=== PATIENT | female | born 1950 | race Caucasian/White ===

== ENCOUNTER 2019-03-29 19:53 | Emergency (ER) | payer OTHER ==
[~2019-03-29] VITALS: Ht 160 cm; Wt 69.0 kg
[~2019-03-29 19:53] MED LIST: CLARITIN10 MG PO; DOCUSATE SODIU100 MG PO; LISINOPRIL10 MG PO; VIVELLE-DOT1 PATC1 TD
[2019-03-29] MEDS ORDERED: ZOMIG2.5 M1 NAS (20:47)
[2019-03-29] MEDS ORDERED: PANTOPRAZOLE SO40 MG PO (20:47)
[2019-03-29] MEDS ORDERED: CYCLOBENZAPRINE10 MG PO (20:48)
[2019-03-29] MEDS ORDERED: ESTRACE42.5 GM VAGINAL (20:49)
[2019-03-30] MEDS ORDERED: DOTTI1 EAC4 TD (13:21)
== END 2019-03-29 22:55 | disposition home or self-care (01) ==
LOC: ED 19:53
DX: R56.9 Unspecified convulsions (principal); R11.10 Vomiting, unspecified; I10 Essential (primary) hypertension; Z85.038 Personal history of other malignant neoplasm of large intestine; Z88.1 Allergy status to other antibiotic agents; Z88.5 Allergy status to narcotic agent; Z91.048 Other nonmedicinal substance allergy status; Z79.899 Other long term (current) drug therapy
CPT/HCPCS: 70450; 80053; 81001; 83735; 85025; 96361; 96374; 96375; 99285-25; G0480; J2405; J2765; J7030

== ENCOUNTER 2019-03-30 13:03 | Day surgery (SDC) | payer OTHER ==
[~2019-03-30] VITALS: Ht 160 cm; Wt 70.8 kg
--- NOTE | ~2019-03-30 | OR ---
[facility] [address] [place], [place] [address] Draft DATE OF OPERATION: 03/30/2019 SURGEON: Jose Oconnor MD PREOPERATIVE DIAGNOSIS: History of right colectomy for stage III colon carcinoma, 2016 (Dr. Kyler Vasquez, [place], [place]). POSTOPERATIVE DIAGNOSIS: Normal colon to ileocolonic anastomosis. PROCEDURE: Total colonoscopy. ANESTHESIA: Intravenous sedation, fentanyl 100 mcg, Versed 6 mg. INDICATION: This 69-year-old white woman is a patient of Dr. Jimenez and underwent right colectomy by laparoscopic approach in 2015 for stage III right colon cancer by Dr. Kyler Vasquez of [place], [place]. She has undergone colonoscopy about a wxtt-irr-c-half ago, which was normal. She is symptom free currently and is here for surveillance colonoscopy. She understands risks of bleeding, infection, and perforation related to colonoscopy and wishes to proceed. Of note, her bowel prep yesterday (MiraLAX type prep) was accompanied by some amount of dehydration, which prompted an emergency room visit, for which, IV fluids were given and she feels well today and certainly able to proceed with colonoscopy. FINDINGS: The prep was good. Complete colonoscopy was undertaken to the ileotransverse colonic anastomosis. There was no sign of polyps, diverticular formation, colitis, or cancer. She had deep sulci of the sigmoid area suggestive of a diverticular issue, however. DESCRIPTION OF PROCEDURE: The patient was brought to the endoscopy suite and placed in lateral decubitus position, given intravenous sedation to the point of slurred speech and nystagmus with full cardiopulmonary monitoring. Digital rectal examination showed extensive external hemorrhoidal changes. Sphincter tone was normal for age. An Olympus video colonoscope was passed in the rectum and manipulated throughout the colon, ultimately intubating the PATIENT NAME: LESLY CEDENO OPERATIVE REPORT DATE OF : 54 REPORT #: [id number] PHYSICIAN: JOSE OCONNOR MD PCP: JIMBO THOMPSON MD REPORT IS CONFIDENTIAL AND NOT TO BE RELEASED WITHOUT AUTHORIZATION [facility] [address] [place], [place] [address] Draft ileotransverse colonic anastomosis. The scope was carefully withdrawn from that point and examination throughout showed no sign of polyps, diverticular formation, colitis, or cancer. There were deep sulci of the mucosal folds of the sigmoid, suggestive of a diverticular issue, however. Retroflexed view was normal as well. The scope was removed. The patient was taken to recovery room in good condition. CONCLUDING DIAGNOSIS: No evidence of polyps, recurrent cancer, or anastomotic stricture. PLAN: Recommend repeat colonoscopy in 1-2 years per patient preference, sooner if symptoms should develop of course. She will return to the ongoing care of Dr. Jimenez. MD BRUNA Bradley/PEDRO /[id number] cc: Dr. Tony Chávez [facility] Copies: ~ PATIENT NAME: LESLY CEDENO OPERATIVE REPORT DATE OF : 54 REPORT #: [id number] PHYSICIAN: JOSE OCONNOR MD PCP: JIMBO THOMPSON MD REPORT IS CONFIDENTIAL AND NOT TO BE RELEASED WITHOUT AUTHORIZATION
[~2019-03-30 13:03] MED LIST changes: +CYCLOBENZAPRINE10 MG PO; +ESTRACE42.5 GM VAGINAL; +PANTOPRAZOLE SO40 MG PO; +ZOMIG2.5 M1 NAS
[2019-03-30] MEDS ORDERED: DOTTI1 EAC4 TD (13:21)
--- NOTE | 2019-03-30 14:16 | NUR ---
03/30/19 1416 Stacia Bennett 1413 PATIENT ARRIVES TO PACU AWAKE BUT DROWSY. DENIES PAIN OR NAUSEA. RESP EVEN AND UNLABORED, ROOM AIR SATS >94%.
== END 2019-03-30 14:40 | disposition home or self-care (01) ==
LOC: OPS 13:03 → DS 14:00 → OPS 14:00
PROVIDERS: Surgery
PROC: 0DJD8ZZ Inspection of Lower Intestinal Tract, Via Natural or Artificial Opening Endoscopic (ICD-10-PCS; principal; 2019-03-30 14:00)
DX: Z12.11 Encounter for screening for malignant neoplasm of colon (principal); K21.9 Gastro-esophageal reflux disease without esophagitis; I10 Essential (primary) hypertension; G60.9 Hereditary and idiopathic neuropathy, unspecified; Z85.038 Personal history of other malignant neoplasm of large intestine
CPT/HCPCS: 99153; G0500; J2250; J3010; J7121

== ENCOUNTER 2019-06-28 14:32 | Emergency (ER) | payer OTHER ==
[~2019-06-28] VITALS: Ht 160 cm; Wt 69.8 kg
[~2019-06-28 14:32] MED LIST changes: +DOTTI1 EAC4 TD
[2019-06-28] MEDS ORDERED: LISINOPRIL40 MG PO (15:09)
== END 2019-06-28 17:55 | disposition home or self-care (01) ==
LOC: ED 14:32
DX: S70.01XA Contusion of right hip, initial encounter (principal); W01.198A Fall on same level from slipping, tripping and stumbling with subsequent striking against other object, initial encounter; I10 Essential (primary) hypertension; Z88.1 Allergy status to other antibiotic agents; Z88.8 Allergy status to other drugs, medicaments and biological substances; Z88.5 Allergy status to narcotic agent; Z79.899 Other long term (current) drug therapy; Z85.038 Personal history of other malignant neoplasm of large intestine
CPT/HCPCS: 73502; 73552; 80053; 85025; 96374; 96375; 99283-25; J1170; J2405

== ENCOUNTER 2020-01-10 07:33 | Day surgery (SDC) | payer MEDICARE ==
[~2020-01-10] VITALS: Ht 160 cm; Wt 65.8 kg
[~2020-01-10 07:33] MED LIST changes: +LISINOPRIL40 MG PO
--- NOTE | 2020-01-10 09:20 | NUR ---
01/10/20 0920 Deborah Viramontes 0910- PT TO PACU IN SF POSITION. AWAKENS EASILY TO VOICE. DENIES PAIN NAUSEA OR DIZZINESS. BREATHING EASY AND UNLABORED. SPO2 >95% ON 3 L O2 VIA NC. POC DISCUSSED WITH PATIENT. PT ANSWERING QUESTIONS APPROPRIATELY. 0918- PT REQUESTING WATER BUT FALLS BACK TO SLEEP. BREATHING EASY AND UNLABORED. SPO2 95% ON 3 L O2 VIA NC. BREATHING EASY AND UNLABORED.
--- NOTE | 2020-01-10 10:30 | NUR ---
PT IS ALERT, ORIENTED AND SEEMS TO BE AT EASE. ALL QUESTIONS ASKED BY PT WERE ANSWERED. PT REQUESTED PRAYER, WILL FOLLOW
--- NOTE | 2020-01-11 07:48 | OR ---
[facility] [address] [place], [place] [address] Signed DATE OF OPERATION: 01/10/2020 SURGEON: Jose Ocnonor MD PREOPERATIVE DIAGNOSES: 1. Progressive dysphagia. 2. History of celiac disease. POSTOPERATIVE DIAGNOSES: 1. No evidence of esophageal stricture; biopsies pending for eosinophilic esophagitis. 2. Small gastric polyps, mild antral gastritis. PROCEDURES: 1. Esophagogastroduodenoscopy with biopsy. 2. Excision of sales representative facility services gastric polyp. ANESTHESIA: Intravenous sedation, fentanyl 100 mcg, and Versed 3 mg. INDICATION: A 69-year-old white woman is a patient of Dr. Angela Julian, and complaints of dysphagia. This has been progressive lately and includes liquid sometimes. The patient is said to have underlying disorder of celiac disease. The association between celiac disease and eosinophilic esophagitis is well known (10 times incidence compared to normal), and upper endoscopy has been recommended by me to assess for cause of her dysphagia including that of stricture, neoplasm, or of course the eosinophilic esophagitis. She understands risks of bleeding, infection, and perforation related to upper endoscopy and wished to proceed. FINDINGS: There was no sign of stricture. There was no Quiñonez's epithelium. She did not have a felinized esophagus, though biopsies are pending as regard to the eosinophilic esophagitis. She had several gastric polyps, one of which was excised. Biopsies were taken of the duodenum, which incidentally did have a normal appearance despite prior diagnosis of celiac disease. A CLOtest was negative at 15 minutes postprocedure. DESCRIPTION OF PROCEDURE: The patient was brought to the endoscopy suite, given topical Hurricaine spray hypopharyngeal anesthesia and placed in lateral decubitus position. She was given Electronically Signed By: JOSE OCONNOR MD 01/11/20 0748 PATIENT NAME: LESLY CEDENO OPERATIVE REPORT DATE OF : 54 REPORT #: [id number] PHYSICIAN: JOSE OCONNOR MD PCP: ANGELA JULIAN MD REPORT IS CONFIDENTIAL AND NOT TO BE RELEASED WITHOUT AUTHORIZATION [facility] [address] [place], [place] [address] Signed intravenous sedation to the point of slurred speech and nystagmus. A bite block was placed. An Olympus video upper endoscope was passed in the hypopharynx. The vocal cords appeared normal. Scope was advanced to the esophagus without problem; throughout its length it looked essentially normal, there is certainly no sign of stricture. There was no Quiñonez's epithelium. Scope was passed to the stomach, which was insufflated with air, there were few scattered gastric polyps and mild antral gastritis. The pylorus was normal. Scope was passed through into the duodenum. Duodenal mucosa appeared normal. Biopsies were taken on the basis of her prior diagnosis of celiac disease. The scope was withdrawn and biopsies then taken of the antrum for both MARTY and pathologic testing. Retroflexed view showed a normal flap valve. A few small gastric polyps were noted. A sales representative facility services one was excised. CLOtest biopsies were obtained as well. The scope was straightened and withdrawn to the distal esophagus, where biopsies were obtained. There was no evidence of Quiñonez's epithelium or stricture. There were no varices. The scope was withdrawn and midesophagus were multiple biopsied, also taken to assess for the eosinophilic esophagitis. Careful withdrawal of scope showed no other findings of concern. The patient was taken to the recovery room in good condition. CONCLUSION DIAGNOSIS: No evidence of stricture to account for dysphagia. Biopsies are pending as regard to the eosinophilic esophagitis. The association between celiac disease and eosinophilic esophagitis is quite strong. We will await those repeat results. If that proves to be negative as to an etiology for her dysphagia, consideration will be made for video esophagram or formal motility testing for a functional disorder of the esophagus. MD BRUNA Bradley/MODL /[id number] cc: Angela Julian MD Copies: ANGELA JULIAN MD ~ Electronically Signed By: JOSE OCONNOR MD 01/11/20 0748 PATIENT NAME: LESLY CEDENO OPERATIVE REPORT DATE OF : 54 REPORT #: [id number] PHYSICIAN: JOSE OCONNOR MD PCP: ANGELA JULIAN MD REPORT IS CONFIDENTIAL AND NOT TO BE RELEASED WITHOUT AUTHORIZATION
--- NOTE | 2020-01-11 10:43 | PATH ---
[facility] [address] [place], [place] [address] Signed SPECIMEN(S): E MIDDLE ESOPHAGUS SPECIMEN(S): A DUODENUM SPECIMEN(S): B ANTRUM/PYLORUS SPECIMEN(S): C STOMACH POLYP SPECIMEN(S): D LOWER ESOPHAGUS SPECIMEN SOURCE: A. DUODENUM B. ANTRUM/PYLORUS C. STOMACH POLYP D. LOWER ESOPHAGUS E. MIDDLE ESOPHAGUS CLINICAL HISTORY: Dysphagia; GERD; celiac disease; history of colon CA. Rule out eosinophilic esophagitis. MICROSCOPIC DESCRIPTION: Histologic sections of all submitted blocks are examined by light microscopy. These findings, together with the gross examination, support the pathologic diagnosis. FINAL PATHOLOGIC DIAGNOSIS: A. Duodenum, biopsy: - Duodenal mucosa with no histopathologic abnormality. - Negative for increased intraepithelial lymphocytes. - Negative for dysplasia or malignancy. B. Stomach, antrum/pylorus, biopsy: - Oxyntic mucosa with mild chronic, inactive gastritis. - Negative for Helicobacter organisms on HE stain. - Negative for dysplasia or malignancy. C. Stomach, polyp, polypectomy: - Fundic gland polyp. - Negative for dysplasia or malignancy. D. Esophagus, lower, biopsy: - Squamous and squamocolumnar junctional mucosa with mild chronic inflammation and reactive changes, suggestive of reflux esophagitis. - Negative for intestinal metaplasia, dysplasia, or malignancy. E. Esophagus, middle, biopsy: - Squamous mucosa with no histopathologic abnormality. - Negative for intestinal metaplasia, dysplasia, or malignancy. NAL:cml:[id number] PATIENT NAME: LESLY CEDENO PATHOLOGY DATE OF : 54 REPORT #: [id number] PHYSICIAN: VIOLA BOLDEN PCP: ANGELA JULIAN MD REPORT IS CONFIDENTIAL AND NOT TO BE RELEASED WITHOUT AUTHORIZATION [facility] [address] [place], [place] [address] Signed GROSS DESCRIPTION: Five specimens are received in five containers, labeled "SR." A. The specimen, labeled "SR, 1," and designated on the requisition "duodenum," is received in formalin and consists of two jose soft tissue fragments that measure 0.3 cm in greatest dimension. The specimen is entirely submitted in cassette (A1). B. The specimen, labeled "SR, 2," and designated on the requisition "antrum/pylorus," is received in formalin and consists of two jose soft tissue fragments that measure 0.5 cm in greatest dimension. The specimen is entirely submitted in cassette (B1). C. The specimen, labeled "SR, 3," and designated on the requisition "stomach polyp," is received in formalin and consists of one jose soft tissue polypoid fragment that measures 0.4 cm in greatest dimension. The specimen is entirely submitted in cassette (C1). D. The specimen, labeled "SR, 4," and designated on the requisition "lower esophagus," is received in formalin and consists of three jose soft tissue fragments that measure 0.4 cm in greatest dimension. The specimen is entirely submitted in cassette (D1). E. The specimen, labeled "SR, 5," and designated on the requisition "middle esophagus," is received in formalin and consists of four thin, jose soft tissue fragments that measure 0.4 cm in greatest dimension. The specimen is entirely submitted in cassette (E1). AT (under the direct supervision of a pathologist) The Gross Description was prepared using a voice recognition system. The report was reviewed for accuracy; however, sound-alike word errors, addition and/or deletions may occur. If there is any question about this report, please contact Client Services. PERFORMING LABORATORY: The technical component was performed by [employer] [address] (Handstitching Machine Collar Feller: Carrie Staley MD; CLIA# [id number]). Professional interpretation was performed by [facility], [address] [place], [place] [address] (CLIA# [id number]). Diagnostician: Lakeshia Hightower MD Pathologist Electronically Signed 01/11/2020 PATIENT NAME: LESLY CEDENO PATHOLOGY DATE OF : 54 REPORT #: [id number] PHYSICIAN: VIOLA BOLDEN PCP: ANGELA JULIAN MD REPORT IS CONFIDENTIAL AND NOT TO BE RELEASED WITHOUT AUTHORIZATION [facility] [address] [facility] [place], [place] [address] Signed Copies: ~ PATIENT NAME: LESLY CEDENO PATHOLOGY DATE OF : 54 REPORT #: [id number] PHYSICIAN: VIOLA BOLDEN PCP: ANGELA JULIAN MD REPORT IS CONFIDENTIAL AND NOT TO BE RELEASED WITHOUT AUTHORIZATION
== END 2020-01-10 09:45 | disposition home or self-care (01) ==
LOC: OPS 07:33 → DS 07:33 → OPS 08:30
PROVIDERS: Surgery
PROC: 0DB78ZX Excision of Stomach, Pylorus, Via Natural or Artificial Opening Endoscopic, Diagnostic (ICD-10-PCS; 2020-01-10)
PROC: 0DB28ZX Excision of Middle Esophagus, Via Natural or Artificial Opening Endoscopic, Diagnostic (ICD-10-PCS; 2020-01-10)
PROC: 0DB38ZX Excision of Lower Esophagus, Via Natural or Artificial Opening Endoscopic, Diagnostic (ICD-10-PCS; 2020-01-10)
PROC: 0DB68ZZ Excision of Stomach, Via Natural or Artificial Opening Endoscopic (ICD-10-PCS; 2020-01-10)
PROC: 0DB98ZX Excision of Duodenum, Via Natural or Artificial Opening Endoscopic, Diagnostic (ICD-10-PCS; principal; 2020-01-10 08:30)
DX: K31.7 Polyp of stomach and duodenum (principal); K29.50 Unspecified chronic gastritis without bleeding; K20.9 Esophagitis, unspecified; I10 Essential (primary) hypertension; K21.9 Gastro-esophageal reflux disease without esophagitis; C18.9 Malignant neoplasm of colon, unspecified; G60.9 Hereditary and idiopathic neuropathy, unspecified; Z87.19 Personal history of other diseases of the digestive system; Z91.011 Allergy to milk products; Z88.5 Allergy status to narcotic agent; Z79.899 Other long term (current) drug therapy
CPT/HCPCS: 99153; G0500; J2250; J3010; J7121

== ENCOUNTER 2022-02-08 07:55 | Day surgery (SDC) | payer MEDICAID ==
[~2022-02-08] VITALS: Ht 160 cm; Wt 68.2 kg
[2022-02-08] MEDS ORDERED: COZAAR100 MG PO (08:12)
[2022-02-08] MEDS ORDERED: CELEXA40 MG PO (08:13)
[2022-02-08] MEDS ORDERED: STOOL SOFTENER100 MG PO (08:14)
--- NOTE | 2022-02-08 09:10 | NUR ---
02/08/22 0910 Sheets,Jessica 0904 PT ARRIVED TO PACU ON 2L VIA NC, PT WAKES EASILY AND DENIES PAIN AND NAUSEA. PT ENCOURAGED TO PASS GAS. VSS, PT FALLS BACK TO SLEEP.
--- NOTE | 2022-02-10 15:53 | OR ---
[facility] [address] [place], [place] [address] Signed DATE OF OPERATION: 02/08/2022 SURGEON: Jose Oconnor MD PREOPERATIVE DIAGNOSIS: History of presumed right colon cancer in 2016 with resection, otherwise asymptomatic. POSTOPERATIVE DIAGNOSES: 1. Mucosal nodularity in region of ileocolic anastomosis, presumably right transverse colon. 2. Scattered diverticulitis, sigmoid. PROCEDURE: Total colonoscopy with biopsies. ANESTHESIA: Intravenous sedation, fentanyl 150 mcg and Versed 6 mg. INDICATIONS: This 71-year-old white woman is a patient of Dr. Vimal Rutherford and Dr Jimenez. She recently underwent skin lesion excision by ak (hemangiomas, benign) and is due for followup colonoscopy. She suffered colon cancer in 2016 and has undergone apparent right colectomy for that. She has no symptoms of bleeding, diarrhea, or constipation at this time. She is admitted at this time to undergo colonoscopy. She understands the risks of bleeding, infection, and perforation. FINDINGS: The prep was excellent. Complete colonoscopy was undertaken to the ileocolic anastomosis. There were multiple small mucosal lesions of the colon outside of the area of anastomosis, whether these are adenomatous or hyperplastic is uncertain. Depending on the configuration of the anastomosis, they may represent lymphoid hyperplasia. A small staple from mechanical stapling device was noted as well. Distally, there were few diverticula of the sigmoid. There were no other findings of concern. DESCRIPTION OF PROCEDURE: The patient was brought to the endoscopy suite and placed in lateral decubitus position given intravenous sedation to the point of slurred speech and nystagmus. Full cardiopulmonary monitoring was maintained. Digital rectal examination was undertaken Electronically Signed By: JOSE OCONNOR MD 02/10/22 1553 PATIENT NAME: LESLY CEDENO OPERATIVE REPORT DATE OF : 54 REPORT #: [id number] PHYSICIAN: JOSE OCONNOR MD PCP: ZAIDA STACY MD REPORT IS CONFIDENTIAL AND NOT TO BE RELEASED WITHOUT AUTHORIZATION [facility] [address] [place], [place] [address] Signed showing no sign of abnormality. An Olympus video colonoscope was passed into the rectum and manipulated throughout the colon, ultimately advanced to an area with some nodularity suggestive of the cecum. With further manipulation, it was clear there was an ileocolic anastomosis, which was widely patent. The scope was passed into the ileum and biopsies obtained there. The scope was withdrawn and there were a number of mucosal lesions, not typical of adenomatous and likely relating hyperplasia. Multiple of these lesions were biopsied and passed for pathology. The scope was then withdrawn and examination throughout showed no sign of abnormality other than a few scattered diverticula of the sigmoid. The scope was removed. The patient was taken to the recovery room in good condition. CONCLUDING DIAGNOSES: 1. History of right colectomy for colon cancer in 2016. 2. Mucosal nodularity in region of the ileocolic anastomosis, colonic side. 3. Diverticula. PLAN: If biopsy shows adenomatous tissue, then further intervention will definitely be needed as there remain numerous similar such nodules. If they are hyperplastic, then we would recommend repeat colonoscopy in one to three years. We will await the pathology report before determining the recommendation. Jose Oconnor MD JM/MODL /[id number] cc: Zaida Stacy M.D. Copies: ~ Electronically Signed By: JOSE OCONNOR MD 02/10/22 1553 PATIENT NAME: LESLY CEDENO OPERATIVE REPORT DATE OF : 54 REPORT #: [id number] PHYSICIAN: JOSE OCONNOR MD PCP: ZAIDA STACY MD REPORT IS CONFIDENTIAL AND NOT TO BE RELEASED WITHOUT AUTHORIZATION
== END 2022-02-08 10:15 | disposition home or self-care (01) ==
LOC: OPS 07:55 → DS 07:55 → OPS 09:00 → DS 10:15
PROVIDERS: ATTEND Surgery
PROC: 0DBE8ZX Excision of Large Intestine, Via Natural or Artificial Opening Endoscopic, Diagnostic (ICD-10-PCS; principal; 2022-02-08 09:00)
DX: Z12.11 Encounter for screening for malignant neoplasm of colon (principal); Z85.038 Personal history of other malignant neoplasm of large intestine; I10 Essential (primary) hypertension; K57.32 Diverticulitis of large intestine without perforation or abscess without bleeding; Z90.49 Acquired absence of other specified parts of digestive tract; I78.1 Nevus, non-neoplastic; Z88.5 Allergy status to narcotic agent; Z88.8 Allergy status to other drugs, medicaments and biological substances
CPT/HCPCS: 99153; G0500; J2250; J3010; J7121

== ENCOUNTER 2025-01-17 10:03 | Day surgery (SDC) | payer MEDICARE ==
[~2025-01-17] VITALS: Ht 160 cm; Wt 66.0 kg
[~2025-01-17 10:03] MED LIST changes: +CEFAZOLIN SODIUM 2 GM/20 ML SYR IV SCH; +CELEXA40 MG PO; +COZAAR100 MG PO; +IBLOOD GLUCOSE TEST STRIP 1 EA TEST VI PRN; +LACTATED RINGER'S 1,000 ML IV SCH; +LIDOCAINE HCL 1% 5 ML SDV INJ ONE; +STOOL SOFTENER100 MG PO
[2025-01-17 10:44] VITALS: BP 136/67
[2025-01-17] MEDS ORDERED: TRAMADOL HCL 50 MG TAB PO PRN (12:00)
[2025-01-17] MEDS ORDERED: LIDOCAINE HCL 2% 5 ML SDV ONE (12:10)
[2025-01-17] MEDS ORDERED: HYDROmorphone HCL 1 MG/ML SYR IV PRN (12:15)
[2025-01-17] MEDS ORDERED: METOCLOPRAMIDE HCL 10 MG/2 ML SDV IV PRN (12:15)
[2025-01-17] MEDS ORDERED: fentaNYL citrate 50 MCG/ML SDV IV PRN (12:15)
[2025-01-17] MEDS ORDERED: IBLOOD GLUCOSE TEST STRIP 1 EA TEST VI PRN (12:15)
[2025-01-17] MEDS ORDERED: NALOXONE HCL 0.4 MG SYR IV PRN (12:15)
[2025-01-17] MEDS ORDERED: fentaNYL citrate 100 MCG/2 ML VIAL ONE (12:16)
[2025-01-17] MEDS ORDERED: KETOROLAC TROMETHAMINE 30 MG/ML VIAL ONE (12:55)
[2025-01-17] MEDS ORDERED: TRAMADOL HCL50 MG PO (12:57)
[2025-01-17 13:27] VITALS: BP 140/69
--- NOTE | 2025-01-17 13:53 | NUR ---
01/17/25 Rios3 Martha Durant 1301- PT PRESENTS TO PACU, SEMI FLOYD POSITION, REACTIVE TO STIMULUS BUT STAYS ASLEEP. SLING TO LEFT ARM, ELEVATED ON PILLOW WITH ICE PACK PLACE, DRESSING CDI. LR INFUSING TO RW IV, BREATHING EVEN AND NON LABORED, O2 AT 6L PER MASK. ABD SOFT, NON DISTENDED. ALL MONITORS IN PLACE. 1304- PT WAKES EASILY, REORIENTED TO TIME AND PLACE. DENIES PAIN OR NAUSEA. O2 IN PLACE. 1306- PT ITCHING AT FACE, MOVED TO ROOM AIR AT THIS TIME. 1315- PT ASKING FOR WATER, PROVIDED AND TOLERATING WELL. PT HAS INTERMITTENT COUGH, BUT NO OTHER COMPLAINTS. DENIES PAIN OR NAUSEA. PLAN TO GO BACK TO DAY SURGERY. 1325- PT TAKEN BACK TO DAY SURGERY, AT BEDSIDE. REPORT TO DORYS ORTA AT BEDSIDE, CARE OF PT TURNED OVER AT THIS TIME.
[2025-01-17 14:38] VITALS: BP 134/63
[2025-01-17] MEDS ORDERED: SEVOFLURANE 250 ML BTL INH ONE (15:59)
--- NOTE | 2025-01-17 17:04 | NUR ---
KENDRA 1325-PT BACK TO ROOM FROM PACU ON RA. RECEIVED REPORT FROM ALEA ORTA. PT IS AWAKE. RESP EVEN AND UNLABORED. DENIES PAIN AND NAUSEA. PT'S ARM IS NUMB FROM NERVE BLOCK. ICE PACK IN PLACE. PT DRINKING WATER. APPLESAUCE PROVIDED. IN ROOM. NO OTHER NEEDS AT THIS TIME. CALL LIGHT WITHIN REACH.
--- NOTE | 2025-01-17 17:06 | NUR ---
KENDRA 1438-PT LAYING IN BED AWAKE. RESP EVEN AND UNLABORED. DENIES PAIN AND NAUESA. PT READY TO GO HOME. WILL HELP PT GET DRESSED. CALL LIGHT WITHIN REACH.
--- NOTE | 2025-01-17 17:06 | NUR ---
KENDRA 1410-PT DOING WELL. IN ROOM. NO OTHER NEEDS AT THIS TIME. CALL LIGHT WITHIN REACH.
--- NOTE | 2025-01-17 17:07 | NUR ---
LE 1456-WENT OVER DISCHARGE INSTRUCTIONS WITH PT AND HER . WENT OVER POSTOP MEDICATIONS. ALL QUESTIONS ANSWERED. LE 1500-PT AMBULATES TO WHEELCHAIR AND RIDE PROVIDED TO FRONT OF HOSPITAL WHERE WAS WAITING WITH THE CAR.
--- NOTE | 2025-01-24 08:03 | OR ---
[facility] [address] [place], [place] [address] Signed DATE OF OPERATION: 01/17/2025 SURGEON: Courtney Steinberg MD PREOPERATIVE DIAGNOSIS: Large osteophyte, left thumb metacarpophalangeal joint. POSTOPERATIVE DIAGNOSIS: Large osteophyte, left thumb metacarpophalangeal joint. PROCEDURE PERFORMED: Excision of osteophyte, left thumb. SEAT COVER INSTALLER: Katina Lanza PA-C. ANESTHESIA: MAC. TOURNIQUET TIME: 18 minutes. BRIEF HISTORY: Marley is a 74-year-old female with a large osteophyte dorsal radial aspect of the thumb MP joint. This was painful when she struck it on things and she wished to get rid of it. Risks and benefits of operative treatment were discussed with her and she elected to proceed. She was also told that this would in all likelihood come back in the next year or two and she understood that as well. DESCRIPTION OF PROCEDURE: Once consent was obtained, she was taken to the operating room. After adequate anesthesia, she was placed on the OR table with a hand table. The arm was prepped and draped in a standard sterile fashion after placement of a well-padded proximal arm tourniquet. The arm was exsanguinated using Esmarch bandage and tourniquet inflated to 200 mmHg. A dorsal incision was made along the radial edge of the EPL and taken through skin and subcutaneous tissue. The dorsal capsule was then incised and elevated off of the osteophyte all the way around to the radial aspect. The osteophyte was then removed piecemeal using rongeur. I felt if we tried to use an osteotome it would be difficult to control on this bone. Once the dorsum and radial aspect of the thumb were contoured, the capsule was closed back into position and held and she had good radial stability. Electronically Signed By: COURTNEY STEINBERG MD 01/24/25 0803 PATIENT NAME: MARLEY CEDENO OPERATIVE REPORT DATE OF : 54 REPORT #: [id number] PHYSICIAN: COURTNEY STEINBERG MD PCP: DALIA WHEELER MD REPORT IS CONFIDENTIAL AND NOT TO BE RELEASED WITHOUT AUTHORIZATION [facility] [address] [place], [place] [address] Signed The wound was then copiously irrigated with normal saline. The capsule was carefully closed with 3-0 Monocryl. The skin with 3-0 Stratafix and sealed with LiquiBand and Steri- Strips. She was placed in Allevyn dressing with gauze. She tolerated the procedure well. All sponge, needle, and instrument counts were correct. Courtney Steinberg MD BA/MODL /[id number] Copies: ~ Electronically Signed By: COURTNEY STEINBERG MD 01/24/25 0803 PATIENT NAME: MARLEY CDEENO OPERATIVE REPORT DATE OF : 54 REPORT #: [id number] PHYSICIAN: COURTNEY STEINBERG MD PCP: DALIA WHEELER MD REPORT IS CONFIDENTIAL AND NOT TO BE RELEASED WITHOUT AUTHORIZATION
== END 2025-01-17 15:01 | disposition home or self-care (01) ==
LOC: DS 10:03
PROVIDERS: ATTEND Specialist
PROC: 0RBV0ZZ Excision of Left Metacarpophalangeal Joint, Open Approach (ICD-10-PCS; principal; 2025-01-17 13:00)
DX: M25.742 Osteophyte, left hand (principal); M19.042 Primary osteoarthritis, left hand; G89.18 Other acute postprocedural pain; I10 Essential (primary) hypertension; Z79.899 Other long term (current) drug therapy; Z88.1 Allergy status to other antibiotic agents; Z88.5 Allergy status to narcotic agent; Z91.018 Allergy to other foods; Z91.09 Other allergy status, other than to drugs and biological substances
CPT/HCPCS: 01810; 64417; J0690; J1885; J2003; J2405; J2704; J3010; J7121

== ENCOUNTER 2025-03-21 11:42 | Day surgery (SDC) | payer MEDICARE ==
[~2025-03-21] VITALS: Ht 160 cm; Wt 68.1 kg
[~2025-03-21 11:42] MED LIST changes: -CEFAZOLIN SODIUM 2 GM/20 ML SYR IV SCH; +MIDAZOLAM HCL 5 MG/5 ML VIAL IV PRN; +TRAMADOL HCL50 MG PO; +fentaNYL citrate 100 MCG/2 ML VIAL IV PRN
[2025-03-21 12:01] VITALS: BP 164/70
[2025-03-21] MEDS ORDERED: TYLENOL325 MG PO (12:04)
[2025-03-21] MEDS ORDERED: fentaNYL citrate 100 MCG/2 ML VIAL ONE (13:11)
[2025-03-21] MEDS ORDERED: MIDAZOLAM HCL 5 MG/5 ML VIAL ONE (13:11)
--- NOTE | 2025-03-21 13:55 | NUR ---
03/21/25 1355 Martha Durant 1347- PT PRESENTS TO PACU, LEFT LATERAL POSITION, AWAKE OFF AND ON. PT DENIES PAIN OR NAUSEA. ENCOURAGED TO PASS GAS, ABD SOFT, NON DISTENDED. LR INFUSING TO RFA IV. O2 AT 2L PER NC, BREATHING EVEN AND NON LABORED. ALL MONITORS IN PLACE. 1355- PT MOVED TO ROOM AIR, RESTING INTERMITTENTLY. NO SIGNS OF DISTRESS.
[2025-03-21 14:23] VITALS: BP 124/74
--- NOTE | 2025-03-22 07:59 | OR ---
[facility] [address], [place] [address] Signed DATE OF OPERATION: 03/21/2025 SURGEON: Jose Oconnor MD PREOPERATIVE DIAGNOSIS: History of right colectomy for cancer stage III in 2016 in [place], [place]. POSTOPERATIVE DIAGNOSIS: Normal colon and ileocolonic anastomosis. PROCEDURE: Total colonoscopy. ANESTHESIA: Intravenous sedation with fentanyl 100 mcg, Versed 6 mg. INDICATION: This 75-year-old white woman underwent right colectomy in 2015 in [place], [place], for a stage III colon cancer. She is here for surveillance colonoscopy. She has no symptoms of bleeding, diarrhea, or constipation, and no family history of colon cancer. Her last colonoscopy was in 2021. She understands the risk of colonoscopy, which includes, but is not limited to bleeding, infection, and perforation and wished to proceed. FINDINGS: The prep was good. Complete colonoscopy was undertaken to the ileocolic anastomosis with intubation of the ileum as well. There was no sign of anastomotic recurrence nor a sign of stricture. The remaining colon and rectum was normal. DESCRIPTION OF PROCEDURE: The patient was brought to the endoscopy suite and placed in lateral decubitus position, given intravenous sedation to the point of slurred speech and nystagmus. Digital rectal examination was normal. An Olympus video colonoscope was passed in the rectum and manipulated throughout the colon ultimately intubating the ileocolonic anastomosis. The ileum was examined several cm, showing no sign of abnormality. The scope was then withdrawn and careful examination upon withdrawal of the scope showed no evidence of polyps or colitis. A few small scattered diverticula were noted, however. Retroflexed view of the rectum was normal. The scope was removed. The patient was taken to the recovery room in good condition. Electronically Signed By: JOSE OCONNOR MD 03/22/25 0759 PATIENT NAME: LESLY CEDENO OPERATIVE REPORT DATE OF : 54 REPORT #: [id number] PHYSICIAN: JOSE OCONNOR MD PCP: DO WHEELER MD REPORT IS CONFIDENTIAL AND NOT TO BE RELEASED WITHOUT AUTHORIZATION [facility] [address], [place] [address] Signed CONCLUDING DIAGNOSIS: No evidence of polyps or recurrent cancer. PLAN: Recommend repeat colonoscopy in 5 years, sooner if symptoms should develop. She will return to the ongoing care of Do Wheeler MD. Jose Oconnor MD JM/MODL /[id number] cc: Do Wheeler MD Copies: ~ Electronically Signed By: JOSE OCONNOR MD 03/22/25 0759 PATIENT NAME: LESLY CEDENO ARDEN OPERATIVE REPORT DATE OF : 54 REPORT #: [id number] PHYSICIAN: JOSE OCONNOR MD PCP: DO WHEELER MD REPORT IS CONFIDENTIAL AND NOT TO BE RELEASED WITHOUT AUTHORIZATION
== END 2025-03-21 14:27 | disposition home or self-care (01) ==
LOC: DS 11:42
PROVIDERS: ATTEND Surgery
PROC: 0DJD8ZZ Inspection of Lower Intestinal Tract, Via Natural or Artificial Opening Endoscopic (ICD-10-PCS; principal; 2025-03-21 13:00)
DX: Z12.11 Encounter for screening for malignant neoplasm of colon (principal); I10 Essential (primary) hypertension; K21.00 Gastro-esophageal reflux disease with esophagitis, without bleeding; K90.0 Celiac disease; Z98.0 Intestinal bypass and anastomosis status; Z85.038 Personal history of other malignant neoplasm of large intestine; Z88.5 Allergy status to narcotic agent; Z91.018 Allergy to other foods; Z79.899 Other long term (current) drug therapy
CPT/HCPCS: 99153; G0500; J2250; J3010; J7121